=== PATIENT | male | born 1990 | race Caucasian/White ===

== ENCOUNTER 2018-10-31 17:51 | Emergency (ER) | payer SELFPAY ==
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
== END 2018-10-31 20:08 | disposition other institution (70) ==
LOC: JP.ED 17:51
DX: F19.10 Other psychoactive substance abuse, uncomplicated (principal); F17.210 Nicotine dependence, cigarettes, uncomplicated
CPT/HCPCS: 80305-QW; 99283

== ENCOUNTER 2022-11-30 11:40 | Emergency (ER) | payer MEDICAID ==
[2022-11-30] MEDS ORDERED: hydrOXYzine HCl 25 MG Tab PO ONE (12:10)
[2022-11-30] MEDS ORDERED: Ondansetron 4 MG Tab.DIS PO ONE (12:18)
[2022-11-30] MEDS ORDERED: Pantoprazole 40 MG Tab.CR PO SCH (12:30)
[2022-11-30 12:41] LABS: ESTIMATED GFR 121 mL/min (>60)
== END 2022-11-30 13:10 ==
LOC: JP.ED 11:40
DX: F13.20 Sedative, hypnotic or anxiolytic dependence, uncomplicated (principal); F10.920 Alcohol use, unspecified with intoxication, uncomplicated; Z72.0 Tobacco use; Z20.822 Contact with and (suspected) exposure to COVID-19; Y90.8 Blood alcohol level of 240 mg/100 ml or more
CPT/HCPCS: 36415; 80053; 80305; 80307; 83690; 85025; 87635; 99285; A9270; Q0162; U0002

== ENCOUNTER 2023-07-12 10:53 | Emergency (ER) | payer MEDICAID | END 2023-07-12 12:26 | disposition home or self-care (01) | LOC: JP.ED 10:53 | DX: K08.89 Other specified disorders of teeth and supporting structures (principal); F17.210 Nicotine dependence, cigarettes, uncomplicated; K21.9 Gastro-esophageal reflux disease without esophagitis; Z79.899 Other long term (current) drug therapy | CPT/HCPCS: 99282 ==